=== PATIENT | female | born 1970 | race Caucasian/White ===

== ENCOUNTER → 2017-06-06 | Outpatient (CLI) | payer OTHER ==
[~2017-06-06] MED LIST: ACET-1311 PO; EFF75 PO; IBUP-1450 PO; LEVO5TAB2 PO; MULT-506 PO; PANT40TA PO; PHEN30CA PO; SOLI10TA2 PO; VENL150C PO
== END | disposition home or self-care (01) ==
LOC: C.PAPS 14:00
PROVIDERS: ATTEND Obstetrics & Gynecology
DX: Z12.4 Encounter for screening for malignant neoplasm of cervix (principal)

== ENCOUNTER 2017-06-09 05:21 | Observation (INO) | payer BC, OTHER ==
[2017-06-06 12:25] VITALS: BMI 36.0
--- NOTE | 2017-06-06 13:01 | PAT Medication Instructions ---
Service Date Jun 06, 2017. Current Home Medication List Acetaminophen (Tylenol), 650 MG PO PRN Ibuprofen (Motrin), 600 MG PO PRN Levocetirizine Dihydrochloride (Xyzal), 1 TAB PO QPM Pantoprazole Sodium (Protonix), 40 MG PO QAM PRN for RN Venlafaxine Hcl (Effexor), 75 MG PO QAM Medication Instructions For Your Scheduled Surgery -Contact your surgeon for instructions for: Ibuprofen (Motrin), 600 MG PO PRN - Take the following medications the morning of surgery with a sip of water: Pantoprazole Sodium (Protonix), 40 MG PO QAM PRN for RN Venlafaxine Hcl (Effexor), 75 MG PO QAM Acetaminophen (Tylenol), 650 MG PO PRN - Take the following medications as scheduled the night before surgery: Acetaminophen (Tylenol), 650 MG PO PRN Levocetirizine Dihydrochloride (Xyzal), 1 TAB PO QPM If you have any questions please call us at [phone] or [phone] or [phone]
[2017-06-06 14:57] LABS: BASO % 0.4 %; BASO ABS # 0.05 K/uL (0-0.2); EOS ABS # 0.12 K/uL (0-0.5); HEMATOCRIT 42.2 % (37-47); IG# 0.03 K/uL (0.00-0.02); LYMPH ABS # 1.84 K/uL (1.2-3.4); MEAN CELL VOLUME 93.2 fL (80-100); MEAN CORPUSCULAR HEMOGLOBIN 30.9 pg (25-34); MEAN CORPUSCULAR HGB CONC 33.2 g/dl (32-36); MEAN PLATELET VOLUME 9.9 fL (7.4-10.4); MONO % 5.2 %; NEUT % 77.1 %; NEUT ABS # 8.83 K/uL (1.4-6.5); PLATELET COUNT 317 K/uL (130-400); RED CELL DISTRIBUTION WIDTH CV 13.4 % (11.5-14.5); RED CELL DISTRIBUTION WIDTH SD 45.5 fL (36.4-46.3); WHITE BLOOD COUNT 11.47 K/uL (4.8-10.8)
[2017-06-09] VITALS (7 sets, daily range): BP systolic 127–138; BP diastolic 67–90; PULSE 73–102; TEMP 36.4–36.8; O2SAT 95–100; Ht 161.3 cm; Wt 96.0 kg
[~2017-06-09] VITALS: Ht 161.3 cm; Wt 96.0 kg
[2017-06-09 05:56] LABS: BASO % 0.4 %; BASO ABS # 0.05 K/uL (0-0.2); EOS % 1.6 %; EOS ABS # 0.18 K/uL (0-0.5); HEMOGLOBIN 14.2 g/dL (12.0-16.0); IG# 0.02 K/uL (0.00-0.02); LYMPH % 23.1 %; LYMPH ABS # 2.58 K/uL (1.2-3.4); MEAN CELL VOLUME 94.1 fL (80-100); MEAN CORPUSCULAR HEMOGLOBIN 31.1 pg (25-34); MONO % 5.6 %; MONO ABS # 0.62 K/uL (0.11-0.59); NEUT % 69.1 %; NEUT ABS # 7.71 K/uL (1.4-6.5); PLATELET COUNT 301 K/uL (130-400); RED CELL DISTRIBUTION WIDTH CV 13.4 % (11.5-14.5); RED CELL DISTRIBUTION WIDTH SD 45.9 fL (36.4-46.3); WHITE BLOOD COUNT 11.16 K/uL (4.8-10.8)
[2017-06-09] MEDS ORDERED: SCOPOLAMINE 1.5 MG TDSY TD SCH (06:00)
[2017-06-09] MEDS ORDERED: METRONIDAZOLE / NSS 500 MG in PREMIXED NSS 100 ML IV SCH (06:00)
[2017-06-09] MEDS ORDERED: LACTATED RINGER'S 1000ML 1,000 ML IV SCH ×3 (06:00→10:11)
[2017-06-09] MEDS ORDERED: CIPROFLOXACIN / D5W 400 MG IV SCH (06:00)
[2017-06-09] MEDS ORDERED: PROMETHAZINE HCL INJ 12.5 MG in SODIUM CHLORIDE 0.9% 50ML 50 ML IV PRN (06:15)
[2017-06-09] MEDS ORDERED: ONDANSETRON INJ 2 MG/ML 2 ML VIAL IV PRN (06:15)
[2017-06-09] MEDS ORDERED: HYDROmorphone INJ 1 MG/ML SYR IV PRN (06:15)
[2017-06-09] MEDS ORDERED: EpHEDrine SULFATE INJ 50 MG/ML AMP IV PRN (06:15)
[2017-06-09] MEDS ORDERED: FENTANYL CITRATE INJ 50 MCG/1 ML 2 ML VIAL IV PRN (06:15)
[2017-06-09] MEDS ORDERED: ATROPINE SULFATE 0.1 MG/ML 5ML SYR IV PRN (06:15)
[2017-06-09] MEDS ORDERED: ROCURONIUM BROMIDE 10 MG/ML 5 ML VIAL IV ONE ×2 (07:02→08:52)
[2017-06-09] MEDS ORDERED: PROPOFOL IV EMULSION 10 MG/ML 20 ML VIAL IV ONE (07:02)
[2017-06-09] MEDS ORDERED: FENTANYL CITRATE INJ 50 MCG/1 ML 2 ML VIAL ONE ×5 (07:02→10:51)
[2017-06-09] MEDS ORDERED: LIDOCAINE HCL 2% 2 ML VIAL (20MG/ML) ONE (07:02)
[2017-06-09] MEDS ORDERED: METHYLENE BLUE 0.5% 10 ML VIAL ONE (07:03)
[2017-06-09] MEDS ORDERED: MIDAZOLAM HCL 1 MG/ML 2ML VIAL ONE (07:03)
[2017-06-09] MEDS ORDERED: BUPIVACAINE 0.5 % 5 MG/1 ML MPF 30ML VIAL ONE (07:03)
[2017-06-09] MEDS ORDERED: ACETAMINOPHEN 1000 MG/100 ML IV IV ONE (07:07)
--- NOTE | 2017-06-09 07:12 | History & Physical Bridge Note ---
H&P Re-Evaluation Bridge Note: I have examined the patient, reviewed the History & Physical and in the interval since the performance of the History & Physical I have noted the following changes of clinical significance: No changes noted
[2017-06-09] MEDS ORDERED: NEOSTIGMINE METHYLSULFATE 5 MG/5 ML SYR ONE (09:16)
[2017-06-09] MEDS ORDERED: DEXAMETHASONE SOD INJ 4 MG/ML VIAL ONE (09:16)
[2017-06-09] MEDS ORDERED: DiphenhydrAMINE HCL 50 MG/ML VIAL ONE (09:16)
[2017-06-09] MEDS ORDERED: ONDANSETRON INJ 2 MG/ML 2 ML VIAL ONE (09:16)
[2017-06-09] MEDS ORDERED: GLYCOPYRROLATE INJ 0.2 MG/ML VIAL ONE (09:16)
[2017-06-09] MEDS ORDERED: ETOMIDATE 2 MG/ML 20 ML VIAL IV ONE (10:06)
--- NOTE | 2017-06-09 10:11 | [facility] Post Operative Brief Note ---
Immediate Operative Summary Operative Date Jun 09, 2017. Pre-Operative Diagnosis Irregular menstrual cycle, pelvic pain,. failed ablation Post-Operative Diagnosis same as pre-operative Procedure(s) Performed Robot Assisted Laparoscopic Supracervical Hysterectomy, Bilateral Salpingectomy with Surgical resection of Uterus and Bilateral Fallopian Tubes, Cystoscopy Surgeon Dr. Marissa Chen Production Expert Surgeon(s) Dr. Ralph Rodriguez Estimated Blood Loss 100mL Findings See Below see op report Fluids (cc crystalloids) 700cc Specimens Permanent: A. Surgically resected uterus, bilateral fallopian tubes. Drains English Anesthesia Type General Complication(s) none Disposition Accompanied Pt To Recover: yes Disposition: Recovery Room / PACU
[2017-06-09] MEDS ORDERED: MEPERIDINE HCL 50 MG/ML CARP IV PRN ×2 (10:15)
[2017-06-09] MEDS ORDERED: OXYCODONE/ACETAMINOPHEN 5-325 TAB PO PRN ×2 (10:15)
[2017-06-09] MEDS ORDERED: IBUPROFEN 600 MG TAB PO PRN (10:15)
[2017-06-09] MEDS ORDERED: ACETAMINOPHEN 325 MG TAB PO PRN (10:15)
[2017-06-09] MEDS ORDERED: KETOROLAC TROMETHAMINE 30 MG/ML VIAL IV. PRN (10:15)
--- NOTE | 2017-06-09 10:15 | Discharge Instructions ---
Discharge Instructions Date of Service Jun 09, 2017. Visit Reason for Visit: Pelvic Pain, Irregular Mentrual Cycle Discharge Discharge Diagnosis / Problem: s/p supracervical hysterectomy, removal of both tubes, cystoscopy Discharge Goals Goal(s): Specific goals Activity Recommendations Activity Limitations: per Instructions/Follow-up section Anesthesia . Post Anesthesia Instructions: If you have had General Anesthesia or IV Sedation: * Do not drive today. * Resume driving when surgeon permits. * Do not make important decisions or sign legal documents today. * Call surgeon for: 1. Temperature elevations greater than 101 degrees F. 2. Uncontrollable pain. 3. Excessive bleeding. 4. Persistent nausea and vomiting. 5. Medication intolerance (nausea, vomiting or rash). * For nausea and vomiting use only clear liquids such as: tea, soda, bouillon until nausea subsides, then gradually increase diet as tolerated. * If you have any concerns or questions, call your surgeon's office. If physician is unavailable and it is an emergency, call 911 or go to the nearest emergency room. . Instructions / Follow-Up Instructions / Follow-Up POST OPERATIVE: BOWEL FUNCTION/MEDICATIONS: 1. Constipation pain and discomfort are the most common complaints 5-7 days after surgery. Points 2-6 address the things that can help. 2. Chewing gum can help stimulate the gut and help improve digestion and motility. 3. Milk of Magnesia 1-2 times per day until return of bowel function. 4. Colace is a stool softener that helps. Taking this 2-3 times per day until bowel function returns to normal is highly recommended. 5. Dulcolax is a laxative that may be used if several days have passed without a bowel movement. Alternatively Miralax may be used daily instead. 6. Drink plenty of fluids as this will also reduce constipation. 7. Narcotic pain medications will be prescribed by your physician. They are safe to use and we encourage you to use them. If you are not allergic, ibuprofen will also be prescribed. Many patients will be able to transition off of the narcotic medications to ibuprofen by postoperative day 3. ACTIVITY RECOMMENDATIONS: 1. Get plenty of rest and listen to your body. If you are tired, take a nap. 2. You may shower, but do not take a tub bath until you see your doctor at the 2 week post operative visit. 3. Absolutely NO intercourse and nothing in the vagina until you are examined by your doctor at the 6 week visit. At that visit it will be determined when such activities can be resumed. This can range from 6-12 weeks after your surgery depending on healing time. 4. The main physical activity in the first week should be walking. By the second week you can slowly increase activity. There are no limits on walking up and down stairs. 5. Do not lift more than 5-10 lbs for 4 weeks. Remember the "one-handed rule", i.e. if you can lift something with only one hand it's likely okay. 6. Minimize residential specialist like vacuuming and exercising for 4 weeks. "Overdoing it" can lead to incisions not healing, pain and vaginal bleeding , so again, listen to your body. 7. Driving can be resumed when you feel able. Do not drive within 24 hours of taking a narcotic medication. EXPECTATIONS: 1. Vaginal spotting, bleeding and discharge are common after surgery. There may even be an odor to the discharge which is often related to sutures used in the vagina. If you experience heavy vaginal bleeding, call the office number day or night [phone]. 2. Bladder discomfort is common after surgery from the catheter. This usually resolves in 1-2 weeks. 3. By the end of the 3rd or 4th week you should be feeling much better. It may take up to 6 weeks for your energy levels to return to normal. 4. Narcotic medications have side effects such as: dizziness, headache, nausea and/or vomiting. If you suspect your pain medication is causing problems, call our office and we may be able to prescribe an alternate medication. 5. The skin incisions are often covered with a liquid bandage. This will gradually peel off over time. CALL THE OFFICE IF YOU HAVE ANY OF THE FOLLOWIN. Temperature of 101 degrees or higher. 2. Severe abdominal or pelvic pain not relieved by pain medication. 3. Persistent nausea or vomiting. 4. Increased pain with urination or difficulty urinating. 5. Bright red bleeding that soaks more than 1 pad per hour. CONTACT PHONE NUMBERS: Main Office: [phone] Surgical Nurse: [phone] [facility] [address] Avoid all tobacco products. If you need help to stop smoking, call [place]'s FREE QUITLINE at . This is a free call. Diet Recommendations Recommended Home Diet: no limitations, resume previous diet Procedures Procedures Performed: Robot Assisted Laparoscopic Supracervical Hysterectomy, Bilateral Salpingectomy with Surgical resection of Uterus and Bilateral Fallopian Tubes, Cystoscopy Pending Studies Studies pending at discharge: no Medical Emergencies . Who to Call and When: Medical Emergencies: If at any time you feel your situation is an emergency, please call 911 immediately. . Non-Emergent Contact Non-Emergency issues call your: Monotype Setter . . "Provider Documentation" section prepared by Marissa Chen. . [place] Drug Monitoring Program Search Results: patient reviewed within database, no issues identified
--- NOTE | 2017-06-09 11:04 | OPERATIVE REPORT ---
DATE OF OPERATION: 06/09/2017 PREOPERATIVE DIAGNOSES: 1. Pelvic pain. 2. Dysfunctional uterine bleeding. 3. Failed ablation. POSTOPERATIVE DIAGNOSES: Same. PROCEDURE: 1. Da Jayson assisted laparoscopic supracervical hysterectomy and bilateral salpingectomy. 2. Cystoscopy. 3. Surgical removal of the uterine specimen via ExCITE procedure. SURGEON: Marissa Chen MD. SUPERVISOR CELL MAINTENANCE: Ralph Rodriguez MD. ESTIMATED BLOOD LOSS: 100. FLUIDS: 700 mL. URINE OUTPUT: 100 mL of clear yellow urine drained from the bladder with her first catheter. INDICATIONS: Hayley is a 4, para 2, x2 with a history of some type of anterior repair for her bladder prolapse who presents with symptoms consistent with failed ablation. She has had a history of a previous endometrial ablation for heavy period and now she is having pain and dysfunctional bleeding. She declines any other medical intervention and desires hysterectomy. She has elected supracervical hysterectomy because she is concerned about pelvic organ prolapse. FINDINGS: Normal appearing uterus, tubes that had bilateral Filshie clips dilated proximal ends of the tubes. Ovaries looked normal bilaterally. Two small approximately 1 cm cyst on the left ovary. At the end of the surgery, both ureters were noted to be peristalsing bilaterally. We had difficulty with the left uterine artery needing to use laparoscopic clips in the left broad ligament and left pelvic sidewall. On cystoscopy, the bladder was intact. Both ureters were found to be effluxing strong streams of urine. Particular attention was paid to the left given that the left side was where we had the issues. We did see the left ureter peristalsing both in the abdomen and then giving clear jet in cystoscopy. COMPLICATIONS: None. DRAINS: English. DISPOSITION: To recovery room in stable condition. DESCRIPTION OF PROCEDURE: The patient was taken to the operating room where she was identified verbally and by bracelet. She was placed in dorsal supine position where general anesthesia was induced without difficulty. She was then placed in dorsal lithotomy position in [facility] stirrups. Her arms were carefully tucked and draped at her side. Her chest was protected and secured. The cigar head holer was placed. The patient was draped in normal sterile fashion. A time-out was held identifying correct patient, procedure, positioning, allergies and preoperative antibiotics. Attention was turned to the vagina where a English catheter was placed. The anterior lip of the cervix was grasped with a single tooth tenaculum. The uterus only sounded to about 5 cm, so it was decided that a Goncalves uterine manipulator was to be placed into the cervix. The speculum was removed. Gloves were then changed. A supraumbilical incision was made with a knife. The Veress needle was placed through this, opening pressure was 5 mmHg. The abdomen was insufflated with 2.5 liters of carbon dioxide gas. A 12 mm trocar was placed through this incision under direct visualization for intra-abdominal placement. The patient was placed in Trendelenburg and after that two 8 mm da Jayson trocars were placed in the right and left lower quadrants under direct visualization and a 10 mm upper accessory trocar. The [employer] hand frame surgical elastic knitter robot was then attached to the patient and the ingot car operator proceeded to the console. First on the left, the tube was identified. It was excised using hot yane. The tubo-ovarian ligament and round ligament where then cauterized with bipolar cautery and cut with hot yane. A partial bladder flap was created anteriorly using sharp scissors. Then on the left, the uterine arteries were skeletonized and burned with bipolar cautery and cut. Unfortunately, one of the uterine arteries retracted into the left broad ligament/pelvic sidewall. Given that there was concern about the ureter in this area, the bleeding vessel was grasped with a [place] and then 2 clips were placed in the area. The area was copiously irrigated. Some bleeding edges were carefully attended to with the [place] bipolar cautery until hemostasis was noted to be much improved. There was probably about 75-100 mL of blood loss during this part of the case. Attention was then turned to the right where the tube was taken down using hot yane. The tubo-ovarian ligament and round ligament were then cauterized with cautery and entered with hot yane. The bladder flap was pushed down and the uterine arteries on the right was then skeletonized, cauterized and cut. Once this was performed because we were doing a supracervical hysterectomy, the Goncalves was removed from the uterus. The tenaculum was used to push the cervix up and the surgical specimen was from the cervix using cautery. This was placed into the right upper quadrant for later review. The os of cervix was then burnt with hot cautery to form a seal. The pelvis and all operative sites were then copiously irrigated and hemostasis was found to be good in all areas. Attention was then turned to cystoscopy where the previous English catheter that had been placed initially was removed. A 70 degree cystoscope was placed into the bladder. The bladder dome was noted to be normal. There was no damage to the bladder dome. Both ureters were found. The left ureter was found immediately, had several jets of a slightly blue-tinged urine. These were strong jets. This was similarly seen on the right. There was no damage to the trigone. The cystoscope was removed and a new catheter was placed sterilely. We then went back to the robot and irrigated the surgical sites again. Hemostasis was noted to be good and Tisseel was placed in the area. The surgeon rescrubbed in. The da Jayson hand frame surgical elastic knitter was removed from the patient. The patient was taken out up to a slight Trendelenburg. A 15 mm trocar was then inserted into the supraumbilical incision. A bag was placed through this, the uterine specimen was placed in the bag under direct visualization. The bag was closed and brought up through the incision. The incision was extended slightly with the knife and using scissors on the fascia. An Talat O ring retractor was then placed into the bag that had been brought up through the incision and the surgical specimen was removed using the knife and an ExCITE procedure under direct visualization. The entire specimen was removed. The Talat and bag were then removed from the abdomen. The trocars were then removed. The gas was released. The fascia was reapproximated with 0 Vicryl on the supraumbilical incision. All incisions were then closed with 4-0 Vicryl in subcuticular fashion. All incisions were infiltrated with 0.5% Marcaine and the procedure was terminated. Attention was turned to the vagina where the tenaculum on the cervix had previously been removed. A speculum was placed and no active bleeding was noted from the cervix. Of note, there was a significant narrowing of the vagina about a third of [address] way in. This feels to be circumferential particularly tight at the top but also posterior in the rectal area as well. This makes visualization of the cervix quite difficult. The procedure was then terminated. All sponge, lap and needle counts were correct x2. The patient tolerated the procedure well and was taken to the recovery room in stable condition. I attest to the content of the Intraoperative Record and any orders documented therein. Any exceptions are noted below. MTDD
--- NOTE | 2017-06-09 11:20 | Anesthesiology Progress Note ---
Anesthesia Post Op Note Date & Time Jun 09, 2017 at 11:19 Vital Signs Pain Intensity: 3 Vital Signs Past 12 Hours Date Time Temp Pulse Resp B/P (MAP) Pulse Ox O2 Delivery O2 Flow Rate FiO2 06/09/17 11:15 36.0 06/09/17 11:11 141/65 06/09/17 11:07 82 18 100 06/09/17 11:07 82 18 06/09/17 11:06 154/76 06/09/17 11:02 98 16 100 06/09/17 11:02 98 16 06/09/17 11:01 82 19 140/87 100 06/09/17 11:01 81 19 06/09/17 10:59 138/92 06/09/17 10:56 76 24 06/09/17 10:56 24 06/09/17 10:51 71 22 06/09/17 10:51 71 22 100 06/09/17 10:46 87 27 06/09/17 10:46 84 27 100 06/09/17 10:45 144/72 06/09/17 10:41 75 26 06/09/17 10:41 75 26 100 06/09/17 10:40 68 17 06/09/17 10:40 68 17 130/70 100 06/09/17 10:35 76 17 06/09/17 10:35 76 17 146/77 97 06/09/17 10:30 16 06/09/17 10:30 16 127/70 06/09/17 10:30 36.4 87 20 127/70 98 Oxymask 10 06/09/17 05:55 36.8 76 16 135/90 (105) 97 Room Air Notes Mental Status: alert / awake / arousable, participated in evaluation Pt Amnestic to Procedure: Yes Nausea / Vomiting: adequately controlled Pain: adequately controlled Airway Patency, RR, SpO2: stable & adequate BP & HR: stable & adequate Hydration State: stable & adequate Anesthetic Complications: no major complications apparent Doing well, pain controlled, no n/v. VSS. Ready for d/c
[2017-06-09] MEDS ORDERED: LABETALOL HCL IV 5 MG/ML 20ML IV ONE (11:56)
[2017-06-09] MEDS ORDERED: IV FLUIDS COMPLETED PRN (12:00)
[2017-06-09] MEDS ORDERED: NURSING VERBAL MED ORDER ONE (12:00)
[2017-06-09] MEDS: CHECK SCOPOLAMINE PATCH PLACEMENT SCH ×2 (12:00→16:00)
[2017-06-09] MEDS ORDERED: SUCCINYLCHOLINE 100MG/5ML SYR IV ONE ×2 (12:02)
[2017-06-09] MEDS ORDERED: PROMETHAZINE HCL INJ 25 MG in SODIUM CHLORIDE 0.9% 50ML 50 ML IV ONE (12:15)
--- NOTE | 2017-06-12 09:48 | DISCHARGE SUMMARY ---
ADMISSION DIAGNOSES: 1. Pelvic pain. 2. Failed ablation. DISCHARGE DIAGNOSES: 1. Pelvic pain. 2. Failed ablation. PROCEDURES: Supracervical hysterectomy with bilateral salpingectomies and cystoscopy. HISTORY OF PRESENT ILLNESS: The patient is a 46-year-old white female 4, para 2-0-2-2, x2 who presents for hysterectomy. When I first saw her back in as a new patient in March she had had an episode of pelvic pain and then a very heavy period. She has a history of ablation in the past and that worked well for a while but now she is having marked pelvic pain and discomfort even in the absence of bleeding. She declined other hormone methods and all other methods of treatment and desires definitive therapy. Since that episode in March, she has had minimal bleeding. She spotted for about 3 days the week prior to surgery and this was the first bleeding since March. The patient notes intermittent pain on either side that radiates outward into the upper thigh. It is not predictable. She can go a few weeks and not have any but she did have a left-sided pain yesterday. When she gets the pain it stops her in her tracks, lasts for a few hours or can be on and off all day. She ranks it is a -11/07. The patient also has a history of an anterior repair about 5 years ago. I do not have any documentation of this surgery. She was very concerned, we do everything to prevent prolapse. I did inform the patient that having a history could increase her chance of prolapse in general. I discussed that if we did a supracervical hysterectomy that might decrease the risk as the attachments of the cervix and vagina could remain intact. We did discuss the need to continue routine Pap smear screening and that she might have some slight spotting and a bit of the endometrium remained at the junction of the cervix. We discussed the use of ExCITE procedure for surgical removal of the uterus. We also discussed that the patient would need to continue to have routine Pap smear screening. For the rest of the patient's detailed history and physical, please see her dictated history and physical. ASSESSMENT: This patient is a 46-year-old G4, P2 who presents for hysterectomy. We have decided on supracervical hysterectomy with bilateral salpingectomies and cystoscopy. HOSPITAL COURSE: The patient was admitted and underwent a laparoscopic supracervical hysterectomy and bilateral salpingectomy, cystoscopy and surgical removal of the uterine specimen via the ExCITE procedure. Findings at the time of surgery revealed a normal uterus, tubes, and ovaries bilaterally. The right ovary had 2 small probably 1 cm or less cystic structures that were drained. During the course of the procedure we had difficulty securing the left uterine artery. This did retract back into the left broad ligament/left pelvic sidewall area in the general vicinity of the ureter. To obtain control of this, surgical clips were used via the da Jayson. On cystoscopy, there was no injury to the bladder. There was excellent efflux of urine from both ureters including the left ureter. We were also able to observe the ureter and its course in the abdomen. The ureter was peristalsing throughout the procedure and at the termination of the procedure. The patient's hospital course was uncomplicated. She tolerated a regular diet, voided after the removal of her English catheter, ambulated and had her pain well controlled on oral pain medications. The patient was discharged on postoperative day zero, she will return in 4 weeks for postoperative evaluation. She was sent home. She had previously been given a prescription for narcotics in the office and was told to alternate this with ibuprofen.
== END 2017-06-09 20:05 | disposition home or self-care (01) ==
LOC: C.ACU 05:21 → C.MS4N 05:45 → ENRESERV 10:58
PROVIDERS: ADMIT Obstetrics & Gynecology; ATTEND Obstetrics & Gynecology
DX: N93.8 Other specified abnormal uterine and vaginal bleeding (principal); N80.0 Endometriosis of uterus; N92.6 Irregular menstruation, unspecified; R10.2 Pelvic and perineal pain; F41.8 Other specified anxiety disorders; E66.9 Obesity, unspecified; Z82.0 Family history of epilepsy and other diseases of the nervous system; Z82.49 Family history of ischemic heart disease and other diseases of the circulatory system; Z63.4 Disappearance and death of family member; Z79.899 Other long term (current) drug therapy
CPT/HCPCS: 58542; S2900